=== PATIENT | female | born 1960 | race Hispanic/Latino ===

== ENCOUNTER → 2020-11-15 07:36 | Outpatient (CLI) | payer OTHER, SELFPAY ==
--- NOTE | 2020-11-15 | DI.NM.S_ITS ---
PROCEDURE: NM UPTAKE AND SCAN RADIOPHARMACEUTICAL: 400 ?Ci I-123 sodium iodide by mouth. INDICATIONS: HYPERTHYROIDISM TECHNIQUE: I-123 sodium iodide was administered orally. Anterior neck images were obtained, and iodine uptake by the thyroid gland calculated using veneer stock grader's software. COMPARISON: None. FINDINGS: Morphology: The thyroid gland has normal morphology and uniform activity. No 'cold' or 'hot' thyroid nodules are identified. Uptake: 6 hour thyroid uptake is 73%; normal ranges are from 6-18%. 24 hour thyroid uptake is 73%; normal ranges are from 10-30%. IMPRESSION: Abnormal increased 6 hour and 24 hour thyroid uptake. Dictated by: Margaux Hernandez MD, PhD on 11/16/2020 at 12:04 Approved by: Margaux Hernandez MD, PhD on 11/16/2020 at 12:08
== END ==
PROVIDERS: PCP Internal Medicine; Referring Provider Family Medicine; Visit Provider Family Medicine
DX: E05.90 Thyrotoxicosis, unspecified without thyrotoxic crisis or storm (principal)
CPT/HCPCS: 78014; A9516

== ENCOUNTER → 2021-07-04 14:54 | Outpatient (CLI) | payer OTHER, SELFPAY ==
[2021-07-04 16:13] LABS: Influenza A - CEPHEID Flu A NEGATIVE (NEGATIVE); Influenza B - CEPHEID Flu B NEGATIVE (NEGATIVE)
[2021-07-04 16:29] LABS: COVID-19 CEPHEID PCR (VTM/NP) POSITIVE (Negative)
[2021-07-04 16:30] LABS: Respiratory Syncytial Virus Detected (Not Detect)
== END ==
PROVIDERS: PCP Internal Medicine; Referring Provider Physician Assistant; Visit Provider Physician Assistant
DX: U07.1 COVID-19 (principal); J06.9 Acute upper respiratory infection, unspecified; R05.9 Cough, unspecified; Z20.822 Contact with and (suspected) exposure to COVID-19
CPT/HCPCS: 87502; 87634; U0003

== ENCOUNTER → 2021-07-10 13:43 | Outpatient (CLI) | payer OTHER, SELFPAY ==
[2021-07-10 15:43] LABS: Free T4, Direct Thyroxine 0.62 ng/dL (0.78-2.19)
[2021-07-10 15:57] LABS: Thyroid Stimulating Hormone 24.4 uIU/mL (0.47-4.68)
== END ==
PROVIDERS: PCP Internal Medicine; Referring Provider Internal Medicine Endocrinology, Diabetes & Metabolism; Visit Provider Internal Medicine Endocrinology, Diabetes & Metabolism
DX: E05.00 Thyrotoxicosis with diffuse goiter without thyrotoxic crisis or storm (principal)
CPT/HCPCS: 36415; 84439; 84443

== ENCOUNTER → 2021-07-31 14:15 | Outpatient (CLI) | payer OTHER, SELFPAY ==
[2021-07-31 16:29] LABS: Free T4, Direct Thyroxine 0.96 ng/dL (0.78-2.19)
[2021-07-31 16:43] LABS: Thyroid Stimulating Hormone 1.19 uIU/mL (0.47-4.68)
== END ==
PROVIDERS: PCP Internal Medicine; Referring Provider Internal Medicine Endocrinology, Diabetes & Metabolism; Visit Provider Internal Medicine Endocrinology, Diabetes & Metabolism
DX: E05.90 Thyrotoxicosis, unspecified without thyrotoxic crisis or storm (principal)
CPT/HCPCS: 36415; 84439; 84443

== ENCOUNTER → 2021-11-19 11:34 | Outpatient (CLI) | payer OTHER, SELFPAY ==
[2021-11-19 14:40] LABS: Hematocrit 37.3 % (36-46); Hemoglobin 12.7 g/dL (12.0-16.0); Mean Corpuscular HGB Conc 34.1 % (30-36); Mean Corpuscular Hemoglobin 29.9 PG (26-34); Mean Corpuscular Volume 87.8 fL (80-100); Platelet Count 274 X10^3/uL (150-400); Red Blood Cell Count 4.25 X10^6/uL (4.0-5.2); Red Cell Distribution Width 12.7 % (11.6-14.8); White Blood Cell Count 3.3 X10^3/uL (4.5-11.0)
[2021-11-19 14:41] LABS: Add Manual Diff / Slide Review YES
[2021-11-19 15:34] LABS: Anisocytosis 1+; Neutrophils Absolute Manual 1980 /uL (3000-5900); Total Cells Counted 100
== END ==
PROVIDERS: PCP Family Medicine Sports Medicine
DX: E05.00 Thyrotoxicosis with diffuse goiter without thyrotoxic crisis or storm (principal)
CPT/HCPCS: 36415; 85007; 85025

== ENCOUNTER → 2023-11-21 13:10 | Outpatient (CLI) | payer OTHER, SELFPAY ==
--- NOTE | 2023-11-21 | DI.RAD.S_ITS ---
PROCEDURE: XR CHEST 2V INDICATIONS: Short of breath TECHNIQUE: 2 views of the chest were acquired. COMPARISON: None. FINDINGS: Surgical changes and devices: None. Lungs and pleura: Lungs are clear. No pleural effusions or pneumothorax. Mediastinum: Mediastinal contours are normal. Heart size is normal. Atherosclerotic calcification of the aortic arch is noted. Bones and chest wall: No suspicious bony abnormalities. Soft tissues appear unremarkable. IMPRESSION: No acute cardiopulmonary abnormality is seen. Dictated by: Cedric Guzmán M.D. on 11/21/2023 at 12:57 Approved by: Cedric Guzmán M.D. on 11/21/2023 at 12:58
== END ==
PROVIDERS: PCP Family Medicine Sports Medicine; Referring Provider Nurse Practitioner Family; Visit Provider Nurse Practitioner Family
DX: R05.1 Acute cough (principal)
CPT/HCPCS: 71046

== ENCOUNTER 2024-03-31 12:20 | Day surgery (SDC) | payer OTHER, SELFPAY ==
[2024-03-31 12:45] VITALS: BP 139/79; PULSE 72; RESP 18; TEMP 36.4; O2SAT 97
--- NOTE | 2024-03-31 13:01 | PM.HP.1 ---
History of Present Illness History of Present Illness Date Patient Seen: 03/31/24 Time Patient Seen: 13:01 Chief complaint: Screening Colonoscopy Narrative: Destiny is a 63-year-old woman who is here for colonoscopy. She last had a colonoscopy about 6 years ago. She does not recall if polyps were removed but she did have a polyp removed at a prior colonoscopy. No family history of colon cancer. PFSH Social History Smoking Status: Former smoker alcohol intake: former Meds Home Medications and Allergies Home Medications Medication Instructions Recorded Confirmed Type albuterol sulfate 90 mcg/actuation 2 puff inhalation Q6H PRN 07/04/21 03/31/24 Rx aerosol inhaler shortness of breath or wheezing #8.5 grams inhalational spacing device #1 ea 11/18/23 11/22/23 Rx (Aerochamber MV spacer) metoprolol succinate 25 mg PO DAILY 11/22/23 03/31/24 History thyroid (pork) [[facility] Thyroid] 5 mg PO DAILY 11/22/23 03/31/24 History sodium,potassium,mag sulfates 17.5 See Rx Instructions PO .COMPLEX 02/18/24 03/31/24 Rx gram-3.13 gram-1.6 gram oral soln #354 mL (Suprep Bowel Prep Kit) methimazole 5 mg tablet 5 mg PO DAILY 03/31/24 03/31/24 History Allergies Allergy/AdvReac Type Severity Reaction Status Date / Time No Known Drug Allergies Allergy Verified 03/31/24 12:53 Exam Vital Signs (past 8 hours): - 03/31/24 12:45 Temperature 97.6 F Pulse Rate 72 Respiratory Rate 18 Blood Pressure 139/79 Pulse Oximetry 97 Oxygen Delivery Method Room Air Oxygen Delivery Method Room Air Const General: No acute distress Resp Effort & Inspection: normal respiratory effort Assessment & Plan Assessment and plan (1) History of colon polyps: Status: Acute Plan Colonoscopy Time-Based Coding :: [TOTAL MINUTES] spent with patient and on the chart (including review of chart, obtaining history, exam, reviewing outside data, placing orders, documenting exam and treatment plan, and counseling patient) on [DATE].
[2024-03-31 13:31] VITALS: BP 99/64; PULSE 67; RESP 14; TEMP 36.2; O2SAT 99
--- NOTE | 2024-03-31 13:34 | PM.OP.COLON ---
Operative Date/Time/Diagnoses Date of procedure: 03/31/24 Time of procedure: 13:34 Pre-op diagnosis: Colon cancer screening Post-op diagnosis: same Procedure & Clinicians Study performed: Colonoscopy Same procedure as scheduled: Yes Surgeon: Johnathan Leija Procedure Notes Procedure in detail: Surgeon: Johnathan Leija MD Anesthesia: Get Rojas MD Procedure: The patient was brought to the endoscopy suite, placed in left lateral decubitus position. The patient was connected to monitoring devices. A time-out was performed. Sedation was administered. Once the patient was adequately sedated, a digital rectal exam was performed and was normal. The scope was then inserted and advanced to the cecum where the appendiceal orifice was identified and photographed. The scope was then slowly withdrawn over greater than 6 minutes. The mucosa was thoroughly inspected. No abnormalities were found. The scope was retroflexed in the rectum. No abnormalities were seen. The scope was straightened and removed. The patient was awakened and brought to recovery. Scope withdrawal time: 8 minutes Sedation time: 15 minutes EBL: 0 Findings: Normal colon Post-procedure Recommendations: Colonoscopy in 10 years Disposition: PACU
[2024-03-31 13:36] VITALS: BP 104/67; PULSE 65; RESP 10; O2SAT 100
[2024-03-31 13:39] VITALS: BP 109/69; PULSE 64; RESP 12; TEMP 36.3; O2SAT 99
[2024-03-31 13:44] VITALS: BP 113/72; PULSE 72; RESP 14; O2SAT 99
== END 2024-03-31 14:00 | disposition home or self-care (01) ==
PROVIDERS: PCP Family Medicine Sports Medicine; Referring Provider Surgery; Visit Provider Surgery
PROC: 0DJD8ZZ Inspection of Lower Intestinal Tract, Via Natural or Artificial Opening Endoscopic (ICD-10-PCS; CPT 45378; principal; 2024-03-31 13:30)
DX: Z12.11 Encounter for screening for malignant neoplasm of colon (principal)
CPT/HCPCS: 45378; J2704